=== PATIENT | male | born 1990 | race Caucasian/White ===

== ENCOUNTER 2018-09-02 03:23 | Emergency (ER) | payer SELFPAY ==
[~2018-09-02] VITALS: Ht 177.8 cm; Wt 84.0 kg
[2018-09-02 03:31] VITALS: BP 154/89; Ht 177.8 cm; Wt 84.0 kg
== END 2018-09-02 04:53 | disposition home or self-care (01) ==
LOC: ED 03:23
DX: L05.01 Pilonidal cyst with abscess (principal)
CPT/HCPCS: J2001